=== PATIENT | female | born 1950 | race Caucasian/White ===

== ENCOUNTER 2018-08-25 18:29 | Observation (INO) ==
--- NOTE | 2018-08-25 21:04 | Internal Med History&Physical ---
<Escobar Ramos - Last Filed: 08/26/18 02:32> Date of Encounter: 08/26/18 Time of Encounter: 21:04 Internal Medicine - H&P: HPI Chief complaint: Swollen throat and rash Admitted From: Hospital to Hospital Transfer Plans for Post Hospital Care: Home History of present illness: Ms. Lopez is a 67 year old female with history of COPD, fibromyalgia, arthritis and recent complex surgery on Friday of last week who presented to [place] ED with 2 day history of sore throat and rash. She states that she initially woke from sleep yesterday morning with a feeling in her throat as if there were something stuck there. She describes it as sore, but not scratchy. In addition to this, she says that she had developed a rash on her upper body, and also had a fever of 101. She felt that the symptoms overall give her general feeling of malaise, and that she overall just was not feeling very well. In addition that she felt that she had hard time swallowing and additionally felt that maybe it was a bit challenging to breathe because she was having some swelling in her throat and also in her lips. She went to the ER in the early afternoon on Friday at which time she was apparently given a dose of Benadryl and told to take it easy for the rest of the day, however she says that she was not feeling any better at that time. She said that the symptoms continued to worsen throughout the day, and when she woke up this morning she felt substantially worse. Throughout the day today, she said her rash continued to get worse, and that it began to itch severely bad as well as had a burning sensation. She said that her throat felt as though it was closing, and he cut significantly more painful throughout the day to swallow. Ultimately, she said that she began to feel extremely sick throughout the day and did not feel that she was getting better. She did not attempt to take anything for this at home, and nothing seemed to make it any better or worse. She presented to the emergency department again due to the painful swallowing as well as difficulty breathing at which time there was significant concern for allergic reaction and anaphylaxis. Upon questioning, the patient says that she has had no changes to her diet, nor has she had any changes in her medications. She says that she has not had any differences that she can think of in exposure at all. Her knowledge she has no food or drug allergies at all. Upon further questioning, her family does mention that she lives [place] the [place] with [place] animals, and the she recently has had exposure to multiple tick bites. They wondered if a tick bite could cause any of these symptoms. In the emergency room, the patient received the typical treatment for anaphylaxis Including Solu-Medrol, Benadryl, Pepcid, and epinephrine. Initially she said that she felt better, however her blood pressure did drop shortly after and she received another dose of epinephrine which did reduce it again. Since that time she has had no trouble with her blood pressure, and she does feel that the swelling has gone down some, however she does not feel that her symptoms have really resolved although not significantly and in fact thinks that her rash has potentially worsened. Pertinent initial labs did demonstrate WBC 15.7, bicarbonate 22, lactic acid 3.0. Following her second dose of epinephrine the patient became significantly more stable and was transferred to [facility] ICU for further monitoring. Past Med Surg Social Fam HX - Past Medical History Medical history: COPD Additional medical history: fibromyalgia. arthritis. gallbladder on friday Psychiatric history: no psych history - Past Surgical History Surgical History: cholecystectomy, sinus surgery - Social History Smoking Status: Former smoker Smokeless Tobacco Status: No Alcohol use: none Drug use: none Internal Medicine - H&P: Meds Budesonide/Formoterol 160/4.5 [Symbicort 160/4.5] 2 puff IH BIDR 04/25/16 [ History] DULoxetine [Cymbalta] 30 mg PO TID 04/25/16 [History] Metoprolol Succinate 100 mg PO DAILY 04/25/16 [History] Albuterol Sulfate [Proair Hfa] 07/16/16 [History] Ascorbic Acid [Vitamin C] 500 mg PO 08/25/18 [History] Docusate [Colace] 100 mg PO BID 08/25/18 [History] Ferrous Sulfate [Iron] 325 mg PO BID 08/25/18 [History] Lisinopril 40 mg PO DAILY 08/25/18 [History] Turmeric Root Extract [Turmeric] 500 mg PO 08/25/18 [History] 3 Allergy/AdvReac Type Severity Reaction Status Date / Time codeine AdvReac Vomiting Verified 08/25/18 14:05 morphine AdvReac Vomiting Verified 08/25/18 14:05 All Systems PM: A 10-system review of systems was performed and is negative for pertinent findings except as documented above in the HPI. Review of systems: Constitutional: Admits to fever Denies chills, weight loss, generalized fatigue Head/Neck: Denies SONI, neck stiffness EENT: Admits to sore throat, swelling in the lips. Denies vision changes/ blurriness, rhinorrhea, congestion CVS: Denies chest pain, palpitations, SOLIS, orthopnea, edema, PND Pulm: Admits to some mild SOB. Denies cough, sputum, hemoptysis, wheezing GI: Denies abdominal pain, nausea, vomiting, diarrhea, constipation, melena, hematemasis : Denies dysuria, increased frequency, urgency, hematuria Heme: Denies ease of bleeding or bruising MSK: Denies joint pain, limited ROM Skin: Admits to rash on trunk/arms/hands and back, swelling in the face. Denies ulcers. Neuro: Denies SONI, focal deficits, ataxia - Constitutional Vitals: Temp Pulse Resp BP Pulse Ox 98.5 F 94 16 127/104 93 08/25/18 20:10 08/25/18 21:00 08/25/18 21:00 08/25/18 21:00 08/25/18 21:00 Exam: Gen: Vitals noted. No acute distress. HEENT: Normocephalic, atraumatic. Mild edema noted in the lips with perioral erythema present. No oral ulcers or bulae are noted. There is no intraoral or pharyngeal edema or erythema that is noted. Tonsils appear unremarkable in size in color and are without exudates. Voice is without rasp or hoarseness however there is very minimal lisp which patient says is abnormal. Neck: Supple. No adenopathy. No goiter or fullness noted anteriorly. No stridor noted on auscultation Cardiac: RRR, no murmur, +S1/S2 Pulmonary: CTA bilaterally, no wheezes, rales, rhonchi or stridor, equal chest expansion Abdomen: soft, nontender, no guarding Back: Nontender throughout. MSK: ROM intact, no joint swelling noted Extremities: no BLE edema, nontender calf, no cyanosis or clubbing Skin: Urticarial/morbilliform rash present on trunk and upper extremities anteriorly and posteriorly which extends down to the hips but does not go the the lower extremities. Minimally raised, blanching. Present on the palmar surface. Neuro: moves all extremities, no focal deficits. A&Ox3 Psych: Appropriate mood and behavior Internal Med - H&P Results - Labs CBC & Chem 7: 08/25/18 22:56 08/25/18 22:56 - Assessment and plan (1) Anaphylaxis Current Visit: Yes Status: Acute Assessment and plan: Anaphylactic reaction, source unknown Patient presents with anaphylaxis/angioedema to face and throat She also has urticarial rash over the trunk and back of her body Presentation is atypical, has been over the course of 2 days As mentioned below there is some concern that there may be underlying infectious source as well Still, at [facility], the patient did develop hypotension which resolved with administration of epinephrine IM Plan Observe in the ICU with frequent vitals check and cardiac monitoring Benadryl, Pepcid, hydrocortisone as needed for rash IM epinephrine as needed for hypotension 40 mg Solu-Medrol IV every 8 hours Hold patient's lisinopril considering concern for angioedema Qualifiers: Encounter type: initial encounter Qualified Code(s): T78.2XXA - Anaphylactic shock, unspecified, initial encounter (2) Leukocytosis Current Visit: Yes Status: Acute Assessment and plan: Patient presented with 48 hours throat pain, rash, fever She states that at home she had a fever of 101 degrees Additionally she said that she has had some nausea without vomiting On presentation the patient had a white count of 15.7, lactic acid 3.0 Rashes present on trunk and posterior, as well as palmar surface of hands but does not extend to the lower extremity The patient's family also mentions that she has had multiple tick bites in the past several weeks There is some concern that infection may play a role in this rather than solely anaphylaxis Plan -We will get blood cultures, repeat lactic acid, ferritin, LFTs, RPR -We will check a peripheral smear for parasites -Consider Antibiotics pending cultures and clinical status Qualifiers: Leukocytosis type: leukemoid reaction Qualified Code(s): D72.823 - Leukemoid reaction (3) Hypertension Current Visit: Yes Status: Acute Assessment and plan: Hypertension, difficult to control Currently well controlled, however did have anaphylaxis We will continue to monitor, hold lisinopril in setting of angioedema Qualifiers: Hypertension type: essential hypertension Qualified Code(s): I10 - Essential (primary) hypertension (4) Status post cholecystectomy Current Visit: Yes Status: Acute Assessment and plan: Status post cholecystectomy one week ago No complications at this time (5) DVT prophylaxis Current Visit: Yes Status: Acute Assessment and plan: Subcutaneous heparin - Time Spent With Patient Total time spent is greater than 50% in coordination of care (as documented) at patient's floor/unit and/or counseling patient: <TabithaZayda - Last Filed: 08/26/18 05:19> Date of Encounter: 08/26/18 Internal Medicine - H&P: HPI History of present illness: Ms. Lopze is a 67 year old female All Systems PM: A 10-system review of systems was performed and is negative for pertinent findings except as documented above in the HPI. - Constitutional Vitals: Temp Pulse Resp BP Pulse Ox 98.2 F 81 20 142/84 92 08/26/18 04:00 08/26/18 04:00 08/26/18 04:00 08/26/18 04:00 08/26/18 04:00 Internal Med - H&P Results - Labs CBC & Chem 7: 08/26/18 03:36 08/26/18 03:36 Labs: Short CBC 08/25/18 08/26/18 Range/Units 22:56 03:36 WBC 12.9 H 12.4 H (4.3-11.1) K/mcL Hgb 14.0 13.1 (11.5-15.4) g/dL Hct 41.9 39.6 (35.3-44.9) % Plt Count 283 274 (140-400) K/mcL Neutrophils # 12.1 H 11.2 H (1.6-8.9) K/mcL BMP 08/25/18 08/26/18 22:56 03:36 Sodium 138 137 Potassium 4.0 4.2 Chloride 108 H 107 Carbon Dioxide 20 L 22 L BUN 17 16 Creatinine 0.89 0.84 Glucose 190 H 152 H Calcium 8.8 8.8 Liver Function 08/25/18 Range/Units 22:56 Total Bilirubin 0.5 (0.3-1.0) mg/dL Direct Bilirubin 0.1 (0.0-0.2) mg/dL AST 14 (13-39) Units/L ALT 22 (7-52) Units/L Alkaline Phosphatase 57 (34-104) Units/L Albumin 3.9 (3.5-5.7) g/dL - Assessment and plan (1) Anaphylaxis Current Visit: Yes Status: Acute Qualifiers: Encounter type: initial encounter Qualified Code(s): T78.2XXA - Anaphylactic shock, unspecified, initial encounter (2) Leukocytosis Current Visit: Yes Status: Acute Qualifiers: Leukocytosis type: leukemoid reaction Qualified Code(s): D72.823 - Leukemoid reaction (3) Hypertension Current Visit: Yes Status: Acute Qualifiers: Hypertension type: essential hypertension Qualified Code(s): I10 - Essential (primary) hypertension (4) Status post cholecystectomy Current Visit: Yes Status: Acute (5) DVT prophylaxis Current Visit: Yes Status: Acute - Time Spent With Patient Total time spent is greater than 50% in coordination of care (as documented) at patient's floor/unit and/or counseling patient: - Attending Attestation Sasha Lopez is a 67-year-old woman who reports a history of fibromyalgia and arthritis as well as COPD who comes in on transfer from [place] emergency room with the complaint of lip swelling, sore throat and new onset rash that developed acutely 2 days ago upon waking up. She seemed to have a morbilliform/urticarial type rash which is highly pruriginous and developed swelling of her lips which increased over 24 hours and subsequently felt as though her throat was closing up. She ended up receiving diphenhydramine and 2 shots of intramuscular epinephrine due to the concern for anaphylaxis and angioedema. No triggering event or entity has been identified as she denied any contact with new medications or locations or animals or any exogenous exposures. She does state that she lives up in the [facility] with forearm gland and animals and has had multiple tick bites. Physical exam remarkable for well-developed woman who is sitting up in bed comfortably in no acute distress. Skin with red urticarial rashes over her upper extremities, abdomen and thighs but spares her lower legs. Lips are red and mildly swollen but her oropharynx is without exudate or erythema with a patent airway. No wheezing, rales or rhonchi. Unclear etiology of this patients symptoms as we have not identified inciting factor. Will observe in the ICU and administer IV fluids to maintain blood pressure as reportedly she developed an episode of hypotension. Place on dual antihistamine therapy. IV steroids for now. Although she reports contact with animals and [place] and multiple tick bites, typically tick borne and parasitic infections do not cause urticarial symptoms and frequently have concomitant thrombocytopenia and LFT abnormalities. All the same a peripheral blood smear and cultures will be obtained.
[2018-08-25] MEDS ORDERED: *HR* HYDROcodone/Acet 5/325 mg TABLET PO PRN (21:34)
[2018-08-25] MEDS ORDERED: Naloxone 0.4 MG/ML INJ IVP PRN (21:34)
[2018-08-25] MEDS ORDERED: Acetaminophen 325 MG TABLET PO PRN (21:34)
[2018-08-25] MEDS ORDERED: traMADol 50 MG TABLET PO PRN (21:34)
[2018-08-25] MEDS ORDERED: EPINEPHRINE 1 MG/ML IM PRN (22:36)
[2018-08-25] MEDS ORDERED: Famotidine 20 MG/2 ML VIAL IVP PRN (22:36)
[2018-08-25] MEDS ORDERED: Ringers Solution, Lactated 1,000 ML IVC SCH (22:45)
[2018-08-25 23:24] LABS: Basophils % 0.2 %; Eosinophils # 0.1 K/mcL (0.0-0.6); Eosinophils % 0.4 %; Hematocrit 41.9 % (35.3-44.9); Immature Granulocytes % 0.5 % (0-4); Lymphocytes # 0.6 K/mcL (0.6-4.6); Lymphocytes % 4.7 %; Mean Corpuscular HGB Conc 33.4 g/dL (31.6-35.5); Mean Corpuscular Hemoglobin 30.9 pg (28.0-33.3); Mean Corpuscular Volume 92.5 fL (83.0-100.0); Mean Platelet Volume 8.7 fL (9.4-12.4); Monocytes # 0.1 K/mcL (0.0-1.3); Monocytes % 0.5 %; Neutrophils # 12.1 K/mcL (1.6-8.9); Platelet Count 283 K/mcL (140-400); Red Blood Count 4.53 M/mcL (3.82-4.97); Red Cell Distribution Width 13.2 % (11.5-14.5); Segmented Neutrophils % 93.7 %
[2018-08-25 23:45] LABS: BUN/Creatinine Ratio 19 (6-26); Bilirubin,Direct 0.1 mg/dL (0.0-0.2); Bilirubin,Total 0.5 mg/dL (0.3-1.0); Blood Urea Nitrogen 17 mg/dL (8-23); Calcium 8.8 mg/dL (8.6-10.3); Carbon Dioxide 20 mEq/L (23-29); Chloride 108 mEq/L (98-107); Glucose 190 mg/dL (70-105); Osmolality,Calculated 293 (280-300); Sodium 138 mEq/L (136-145); eGFR For Non-African Americans > 60 (> 60)
[2018-08-25 23:46] LABS: Alanine Aminotransferase 22 Units/L (7-52); Albumin 3.9 g/dL (3.5-5.7); Albumin/Globulin Ratio 1.4 (1.1-2.2); Alkaline Phosphatase 57 Units/L (34-104); Aspartate Amino Transferase 14 Units/L (13-39); Bilirubin,Indirect 0.4 mg/dL (0.0-1.2); Globulin 2.7 g/dL (2.4-3.5); Total Protein 6.6 g/dL (6.4-8.9)
[2018-08-26 00:03] LABS: Ferritin 211 ng/mL (10-120)
[2018-08-26] MEDS ORDERED: 0.9 % Sodium Chloride 1,000 ML IVC SCH (03:00)
[2018-08-26 03:53] LABS: Basophils % 0.2 %; Eosinophils % 0.3 %; Hematocrit 39.6 % (35.3-44.9); Hemoglobin 13.1 g/dL (11.5-15.4); Immature Granulocytes % 0.5 % (0-4); Lymphocytes # 0.9 K/mcL (0.6-4.6); Lymphocytes % 7.4 %; Mean Corpuscular HGB Conc 33.1 g/dL (31.6-35.5); Mean Corpuscular Hemoglobin 30.4 pg (28.0-33.3); Mean Corpuscular Volume 91.9 fL (83.0-100.0); Mean Platelet Volume 8.8 fL (9.4-12.4); Monocytes # 0.2 K/mcL (0.0-1.3); Monocytes % 1.5 %; Neutrophils # 11.2 K/mcL (1.6-8.9); Platelet Count 274 K/mcL (140-400); Red Blood Count 4.31 M/mcL (3.82-4.97); Red Cell Distribution Width 13.2 % (11.5-14.5); Segmented Neutrophils % 90.1 %
[2018-08-26 04:05] LABS: BUN/Creatinine Ratio 19 (6-26); Blood Urea Nitrogen 16 mg/dL (8-23); Calcium 8.8 mg/dL (8.6-10.3); Carbon Dioxide 22 mEq/L (23-29); Chloride 107 mEq/L (98-107); Glucose 152 mg/dL (70-105); Osmolality,Calculated 288 (280-300); Potassium 4.2 mEq/L (3.5-5.1); Sodium 137 mEq/L (136-145); eGFR For Non-African Americans > 60 (> 60)
[2018-08-26] MEDS: *HR* Heparin 5,000 UNIT/ML VIAL SQ SCH ×3 (05:07→21:06)
[2018-08-26] MEDS ORDERED: Budesonide/Formoterol 160/4.5 1 PUFF INH IH ONE (07:12)
[2018-08-26] MEDS: Budesonide/Formoterol 160/4.5 1 PUFF INH IH SCH ×2 (07:34→20:34)
[2018-08-26] MEDS: Metoprolol XL (24 HR) Succ 50 MG TAB.ER.24H PO SCH (08:46)
[2018-08-26] MEDS: MethylPREDNISolone 40 MG/ML VIAL IVP SCH ×3 (08:46→23:13)
--- NOTE | 2018-08-26 09:46 | Internal Med Progress Note ---
Hospitalist Progress Note - Encounter Date of Encounter: 08/26/18 Time of Encounter: 08:00 - Subjective Interval History: Patient was seen and examined at bedside. Reports that her neck swelling, lip swelling in mouth swelling has nearly resolved. Slept well yesterday without any difficulty. Denies shortness of breath, wheezing, chest pain, fever, chills , nausea, vomiting, diarrhea. The sensation of having something in her throat has resolved. She does report that she has had a tick bite about 2 weeks ago with tick attached to her back. About 2 days ago she developed a red itchy and burning rash that started on her abdomen and spread to her extremities including her palms. She denies recent travel, no recent medication changes, no new medications, no recent antibiotic use, no similar symptoms in the past, no sick contacts. She denies ever having any cold sores. - Exam Vitals: Temp Pulse Resp BP Pulse Ox 98.1 F 86 16 139/71 93 08/26/18 07:30 08/26/18 06:00 08/26/18 07:34 08/26/18 06:00 08/26/18 07:34 Exam: General: Patient is alert, oriented, no acute distress, speaks in full sentences Head: atraumatic, normocephalic, Eye: normal appearance, PERRL, no scleral icterus, no conjunctival injection ENT: mucous membranes moist, normal external ear exam, has erythema and dryness at the angle of the mouth bilaterally, no visible oral ulcers Neck: normal inspection, trachea midline, full ROM, no carotid bruits Chest: normal inspection, symmetric chest rise Respiratory: Good respiratory effort. Bilateral breath sounds are clear without wheezing, crackles, or rhonchi. Cardiovascular: Regular rate and rhythm. s1 and s2 No clicks, rubs, gallops, or murmors. Abdomen: Bowel sounds present normoactive x-4 quadrants. Abdomen is soft, nondistended. no Epigastric tenderness. No guarding or rebound. No organomegaly noted, obese musculoskeletal: Spontaneously moving all extremities. no edema, no calf tenderness Skin: warm, dry, intact. eruthematoues macular rash involving stomach, trunk, palms, upper and lower extremities. Neuro: Alert and oriented x4. Sensation light touch intact. Cranial nerves 2- 12 is intact. Not aphasic, Psych: Patient's affect is normal - Assessment and Plan (1) Anaphylaxis Current Visit: Yes Status: Acute Assessment and Plan: Anaphylactic reaction, source unknown ( no recent new medication, no recent Abx use) ? infectious Patient presents with anaphylaxis/angioedema to face and throat She also has urticarial rash over the trunk and back of her body Presentation is atypical, has been over the course of 2 days Observe in the ICU with frequent vitals check and cardiac monitoring- will consider transfering the patietn if her vitals and respiratory status remains stable Benadryl, Pepcid, hydrocortisone as needed for rash IM epinephrine as needed for hypotension 40 mg Solu-Medrol IV every 8 hours Hold patient's lisinopril considering concern for angioedema (2) Rash and nonspecific skin eruption Current Visit: Yes Status: Acute Assessment and Plan: allergic vs drug induced ( recent cholecystectomy) vs infectious Patient presented with 48 hours throat pain, rash, fever of 101 degrees (at home ) - currently afebrile Additionally she said that she has had some nausea without vomiting On presentation the patient had a white count of 15.7, lactic acid 3.0- both trending down new onset rash that started from he trunk involving extremities and palms. recent tick bite RPR ordered rickettsia - ordered peripheral smear for parasites- ordered ESR, CRP trend lactic acid ferritin mildly elevated 211 Bcx obtained on 08/25/18 ID consulted will follow recommendations (3) Leukocytosis Current Visit: Yes Status: Acute Assessment and Plan: management as per above (4) Hypertension Current Visit: Yes Status: Acute Assessment and Plan: Currently controlled, however did have anaphylaxis We will continue to monitor BP hold lisinopril in setting of angioedema (5) Status post cholecystectomy Current Visit: Yes Status: Acute Assessment and Plan: Status post cholecystectomy one week ago No complications at this time (6) Hyperglycemia Current Visit: Yes Status: Acute Assessment and Plan: ? steroid induced follow A1c finger sticks and sliding scale for glucose control (7) DVT prophylaxis Current Visit: Yes Status: Acute Assessment and Plan: Subcutaneous heparin - Time Spent with Patient Total time spent is greater than 50% in coordination of care (as documented) at patient's floor/unit and/or counseling patient: Internal Medicine: Result - Labs CBC & Chem 7: 08/26/18 03:36 08/26/18 03:36 Labs: Short CBC 08/25/18 08/26/18 Range/Units 22:56 03:36 WBC 12.9 H 12.4 H (4.3-11.1) K/mcL Hgb 14.0 13.1 (11.5-15.4) g/dL Hct 41.9 39.6 (35.3-44.9) % Plt Count 283 274 (140-400) K/mcL Neutrophils # 12.1 H 11.2 H (1.6-8.9) K/mcL BMP 08/25/18 08/26/18 22:56 03:36 Sodium 138 137 Potassium 4.0 4.2 Chloride 108 H 107 Carbon Dioxide 20 L 22 L BUN 17 16 Creatinine 0.89 0.84 Glucose 190 H 152 H Calcium 8.8 8.8 Liver Function 08/25/18 Range/Units 22:56 Total Bilirubin 0.5 (0.3-1.0) mg/dL Direct Bilirubin 0.1 (0.0-0.2) mg/dL AST 14 (13-39) Units/L ALT 22 (7-52) Units/L Alkaline Phosphatase 57 (34-104) Units/L Albumin 3.9 (3.5-5.7) g/dL Consult Discharge Plan - Plan Referrals: Saul Dixon MD [Primary Care Provider] - (1) Anaphylaxis Qualifiers: Encounter type: initial encounter Qualified Code(s): T78.2XXA - Anaphylactic shock, unspecified, initial encounter (3) Leukocytosis Qualifiers: Leukocytosis type: leukemoid reaction Qualified Code(s): D72.823 - Leukemoid reaction (4) Hypertension Qualifiers: Hypertension type: essential hypertension Qualified Code(s): I10 - Essential (primary) hypertension
[2018-08-26] MEDS ORDERED: *HR* Dextrose 50 % in Water (Syg) 50 ML SYRINGE IVP PRN (10:03)
[2018-08-26] MEDS ORDERED: Dextrose Gel 15 GM/37.5 ML TUBE PO PRN ×2 (10:03)
[2018-08-26] MEDS ORDERED: D5% in Water 1,000 ML IVC PRN (10:03)
[2018-08-26 11:42] LABS: Estimated Average Glucose 114 mg/dl; Hemoglobin A1C 5.6 %
--- NOTE | 2018-08-26 12:03 | Infectious Disease Consult ---
Date of Encounter: 08/26/18 Time of Encounter: 11:57 Assessment and Plan (1) Sepsis Status: Acute Assessment and plan: On admission patient had low-grade fever, tachycardia and leukocytosis Likely secondary to viral exanthem or inflammatory response No obvious infectious etiology identified. CT chest was negative for acute process. Blood cultures have been negative and strep screen came back negative No urinary symptoms Qualifiers: Sepsis type: sepsis due to unspecified organism Qualified Code(s): A41.9 - Sepsis, unspecified organism (2) Rash and nonspecific skin eruption Status: Acute Assessment and plan: Initially I was concerned for measles especially that the rash is typical presentation and I was concerned for possible [place] spots Patient illnesses had measle twice in the past I did place the patient and the proper isolation precaution I did speak with dermatology and symptomatic picture of the patient and they think measles is less likely. They are concerned more for her tachycardia or urticarial vasculitis or erythema multiforme. Sometimes connective tissue disease can present. I will start antibiotics yet Maybe return to evaluate and start the patient on steroids We will also check upper respiratory infection panel Check inflammatory markers including ESR and CRP. Check SAEID and rheumatoid factor Check procalcitonin level (3) Sore throat Status: Acute Assessment and plan: Likely secondary to viral exanthem Strep rapid screen came back negative (4) Status post cholecystectomy Status: Acute Infectious Disease HPI - Data of Consult Patient: new to practice Consult date: 08/26/18 Requesting Physician: Magan Gould MD Primary Care Provider: Saul Dixon MD - Consult Narrative Reason for consult: "Rash from trunk now involving extremities including palms, rickettsia?? History of present illness: Ms. Lopez is a 67 year old female Patient is a 67-year-old woman who presented to [facility] on 08/26/2018 with swollen throat and rash, we are consulted today for concern for infectious etiology including tick borne illness versus secondary syphilis versus other Patient is 67-year-old woman with past medical history mentioned below including COPD, fibromyalgia, arthritis presented to [facility] with sore throat, rash and just not feeling well that started on Friday prior to admission. Patient apparently is retired and lives alone and has no children and grandchildren close by. Patient denies any sick contacts. Patient denied URI symptoms. Patient denies any headache or meningeal sign. Patient denied any throat swelling but she states that she felt like her throat is sore and is of something stuck in there. Patient states that the rash started on her trunk and has been spreading. Apparently the rash is very pruritic. Rash is maculopapular. No vesicles. On further questioning patient tells me she has had measles twice when she was young and she has had chickenpox in the past. Patient also had a tick bite previously about 2 weeks ago. Since admission, patient has been afebrile but at the outside facility she had a fever of 100.1, tachycardic, tachypneic. Patient presenting labs revealed a WBC of 12.9 with 94% neutrophils. Patient's BMP was revealing for lactic acidosis with S of 3.7. BUN/creatinine were 17 and 0.89 respectively. CRP was checked and it was 34. Blood cultures 2 were obtained on 08/25/2018 and are no growth to date. Group a strep rapid screen was done and came back negative. Platelets were within normal limits and patient did not have elevated LFTs. Patient did have a CT chest at the outside facility and it reveals 6 mm nodule on the posterior basal left lower lobe that has increased from 2 mm back in April 2017. Currently patient laying in bed and appears comfortable no acute distress. Review of systems unremarkable other for what mentioned in history of present illness. On further questioning. Patient tells me she is not sexually active she has not had any kind of intercourse for 8 years. Denies history of STDs or HIV. Patient does not smoke drink or use recreational drug CC: Magan Gould MD Past Med Surg Social Fam HX - Past Medical History Medical history: COPD Additional medical history: fibromyalgia. arthritis. gallbladder on friday Psychiatric history: no psych history - Past Surgical History Surgical History: cholecystectomy, sinus surgery - Social History Smoking Status: Former smoker Smokeless Tobacco Status: No Alcohol use: none Drug use: none Infectious Disease-CN:Meds Budesonide/Formoterol 160/4.5 [Symbicort 160/4.5] 2 puff IH BIDR 04/25/16 [ History] DULoxetine [Cymbalta] 30 mg PO TID 04/25/16 [History] Albuterol Sulfate [Proair Hfa] 07/16/16 [History] Ascorbic Acid [Vitamin C] 500 mg PO 08/25/18 [History] Docusate [Colace] 100 mg PO BID 08/25/18 [History] Ferrous Sulfate [Iron] 325 mg PO BID 08/25/18 [History] Lisinopril 40 mg PO DAILY 08/25/18 [History] Turmeric Root Extract [Turmeric] 500 mg PO 08/25/18 [History] Amlodipine Besylate [Amlodipine Besylate] 10 mg PO DAILY 08/26/18 [History] Metoprolol Succinate 200 mg PO DAILY 08/26/18 [History] 3 Allergy/AdvReac Type Severity Reaction Status Date / Time codeine AdvReac Vomiting Verified 08/25/18 14:05 morphine AdvReac Vomiting Verified 08/25/18 14:05 Review of systems: 10 point review of systems done, negative other for what is mentioned in history of present illness Exam - Constitutional Vitals: Temp Pulse Resp BP Pulse Ox 98.1 F 83 24 139/75 94 08/26/18 07:30 08/26/18 09:00 08/26/18 09:00 08/26/18 09:00 08/26/18 09:00 General appearance: cooperative, no acute distress, no febrile - Head Head exam: Present: atraumatic, normocephalic - Eye Eye exam: Present: EOMI, PERRL, sclera anicteric - ENT Additional comments: Some white lesions on the cheeks bilaterally. I was worried for K[place] spots but does not appear that way - Neck Neck exam: Absent: meningismus Additional comments: Very small non-mobile nontender lymph nodes - Respiratory Respiratory exam: Present: CTAB. Absent: wheezes - Cardiovascular Cardiovascular exam: Present: RRR, +S1, +S2 - GI/Abdominal GI/Abdominal exam: Present: normal bowel sounds, soft. Absent: tenderness - Extremities Exam Extremities exam: Present: full ROM. Absent: pedal edema - Neurological Exam Neurological exam: Present: alert, oriented X3. Absent: speech deficit - Skin Additional comments: Large areas of maculopapular rash that is most concentrated on the trunk with lesions no noted on the upper and lower extremities and the neck. Lesions sparing the face. There is no vesicles. No dermatomal distribution. Rash is very red Infectious Disease CN: Results - Labs CBC & Chem 7: 08/26/18 03:36 08/26/18 03:36 Cultures: Cultures 08/25/18 22:56 Blood Culture - Preliminary Peripheral Venipuncture Culture is incubating and being continuously monitored for growth. Final report to follow. 08/25/18 22:56 Blood Culture - Preliminary Peripheral Venipuncture Culture is incubating and being continuously monitored for growth. Final report to follow. Consult Discharge Plan - Plan Referrals: Saul Dixon MD [Primary Care Provider] -
[2018-08-26] MEDS: 0.9 % Sodium Chloride 1,000 ML IVC SCH (12:05)
[2018-08-26] MEDS: Insulin LISPRO 300 UNITS/3 ML VIAL SQ SCH ×3 (12:42→23:13)
[2018-08-26 18:42] LABS: Adenovirus Not Detected (Not Detect); Bordetella Pertussis Not Detected (Not Detect); Chlamydophila pneumoniae Not Detected (Not Detect); Coronavirus 229E Not Detected (Not Detect); Coronavirus HKU1 Not Detected (Not Detect); Coronavirus NL63 Not Detected (Not Detect); Coronavirus OC43 Not Detected (Not Detect); Human Metapneumovirus Not Detected (Not Detect); Human Rhinovirus/Enterovirus Not Detected (Not Detect); Influenza A Subtype 2009 H1 Not Detected (Not Detect); Influenza A Untypeable Not Detected (Not Detect); Influenza B Not Detected (Not Detect); Mycoplasma pneumoniae Not Detected (Not Detect); Parainfluenza Virus 1 Not Detected (Not Detect); Parainfluenza Virus 2 Not Detected (Not Detect); Parainfluenza Virus 3 Not Detected (Not Detect); Parainfluenza Virus 4 Not Detected (Not Detect); Respiratory Syncytial Virus Not Detected (Not Detect)
[2018-08-27] MEDS ORDERED: hydrALAZINE 10 MG TABLET PO ONE (03:31)
[2018-08-27] MEDS ORDERED: DiphenhydraMINE CREAM 28.4 GM TUBE TP PRN (03:48)
[2018-08-27] MEDS: *HR* Heparin 5,000 UNIT/ML VIAL SQ SCH ×3 (04:42→21:26)
[2018-08-27 05:17] LABS: Hematocrit 34.3 % (35.3-44.9); Hemoglobin 11.7 g/dL (11.5-15.4); Mean Corpuscular HGB Conc 34.1 g/dL (31.6-35.5); Mean Corpuscular Hemoglobin 30.9 pg (28.0-33.3); Mean Corpuscular Volume 90.5 fL (83.0-100.0); Mean Platelet Volume 8.8 fL (9.4-12.4); Platelet Count 269 K/mcL (140-400); Red Blood Count 3.79 M/mcL (3.82-4.97); Red Cell Distribution Width 13.8 % (11.5-14.5)
[2018-08-27] MEDS: Insulin LISPRO 300 UNITS/3 ML VIAL SQ SCH ×3 (05:19→18:40)
[2018-08-27 05:38] LABS: BUN/Creatinine Ratio 23 (6-26); Blood Urea Nitrogen 14 mg/dL (8-23); Calcium 8.8 mg/dL (8.6-10.3); Carbon Dioxide 21 mEq/L (23-29); Chloride 108 mEq/L (98-107); Glucose 201 mg/dL (70-105); Osmolality,Calculated 292 (280-300); Sodium 138 mEq/L (136-145); eGFR For Non-African Americans > 60 (> 60)
[2018-08-27] MEDS: 0.9 % Sodium Chloride 1,000 ML IVC SCH (06:27)
[2018-08-27] MEDS: Budesonide/Formoterol 160/4.5 1 PUFF INH IH SCH ×2 (07:52→21:53)
[2018-08-27] MEDS: Metoprolol XL (24 HR) Succ 50 MG TAB.ER.24H PO SCH (08:57)
[2018-08-27] MEDS: MethylPREDNISolone 40 MG/ML VIAL IVP SCH ×2 (08:58→16:03)
[2018-08-27] MEDS ORDERED: *HR* HYDROcodone/Acet 5/325 mg TABLET PO PRN (12:44)
--- NOTE | 2018-08-27 15:55 | Infectious Disease Progress No ---
Date of Encounter: 08/27/18 Time of Encounter: 15:52 - Assessment and Plan (1) Sepsis Status: Acute The patient had 3 sepsis criteria on admission. Likely secondary to viral exanthem or inflammatory response. No obvious signs of infection noted. WBC worse this morning, likely secondary to steroids. CT of the chest was negative for acute process. Blood cultures drawn on 08/25/18 are no growth to date 2 sets. Strep screen was negative. No urinary symptoms noted. Antibiotics been discontinued. Continue to observe off antibiotics. Qualifiers: Sepsis type: sepsis due to unspecified organism Qualified Code(s): A41.9 - Sepsis, unspecified organism (2) Rash and nonspecific skin eruption Status: Acute Etiology: Unclear. Initially concerned for measles, but discussion with dermatology makes measles less likely. Recommend dermatology to evaluate for possible skin biopsy. Continue supportive care. ESR and CRP not impressive. Procalcitonin pending. SAEID pending. Rheumatoid factor normal. It is less likely that this is a bacterial infectio. Viral exanthem is possible. Await dermatology recommendations. Continue to observe off antibiotics. No further recommendations from the ID team. We will sign off. Please re- consult if needed. (3) Sore throat Status: Acute Strep screen negative. (4) Status post cholecystectomy Status: Acute - Subjective Interval history: Patient seen and examined. No acute events noted overnight. Patient states she is tired because she couldn't sleep due to itching. Denies fevers, chills, or rigors. Denies chest pain, shortness of breath, or cough. Denies nausea, vomiting, or diarrhea. Denies abdominal pain, urinary complaints. States appetite is not very good. Denies oral thrush. States rash is no better but no worse. Infect Dis PN-Objective Data - Labs CBC & Chem 7: 08/28/18 00:48 08/28/18 00:48 Labs: Laboratory Results - last 24 hr 08/26/18 08/26/18 08/26/18 12:26 16:45 23:05 WBC RBC Hgb Hct MCV MCH MCHC RDW Plt Count MPV ESR Sodium Potassium Chloride Carbon Dioxide BUN Creatinine Est GFR ( Amer) Est GFR (Non-Af Amer) BUN/Creatinine Ratio Glucose POC Glucose 147 H 196 H Calculated Osmolality Calcium C-Reactive Protein Rheumatoid Factor Chlamy pneumoniae PCR Not Detected Adenovirus (PCR) Not Detected B. pertussis DNA (PCR) Not Detected B.parapertussis DNA PCR Not Detected Coronavirus OC43 (PCR) Not Detected Coronavirus HKU1 (PCR) Not Detected Coronavirus 229E (PCR) Not Detected Coronavirus NL63 (PCR) Not Detected Human Metapneumovir PCR Not Detected Influenza A (H1) PCR Not Detected Influ A (H1N1/09) PCR Not Detected Influenza A (H3) PCR Not Detected Influenza A Untype (PCR) Not Detected Influenza Type B (PCR) Not Detected M.pneumoniae DNA (PCR) Not Detected Parainfluenza 1 (PCR) Not Detected Parainfluenza 2 (PCR) Not Detected Parainfluenza 3 (PCR) Not Detected Parainfluenza 4 (PCR) Not Detected RSV (PCR) Not Detected Entero/Rhino (PCR) Not Detected 08/27/18 08/27/18 08/27/18 05:04 05:04 05:04 WBC 15.3 H RBC 3.79 L Hgb 11.7 Hct 34.3 L MCV 90.5 MCH 30.9 MCHC 34.1 RDW 13.8 Plt Count 269 MPV 8.8 L ESR 13 Sodium 138 Potassium 4.0 Chloride 108 H Carbon Dioxide 21 L BUN 14 Creatinine 0.62 Est GFR ( Amer) > 60 Est GFR (Non-Af Amer) > 60 BUN/Creatinine Ratio 23 Glucose 201 H POC Glucose Calculated Osmolality 292 Calcium 8.8 C-Reactive Protein Rheumatoid Factor Chlamy pneumoniae PCR Adenovirus (PCR) B. pertussis DNA (PCR) B.parapertussis DNA PCR Coronavirus OC43 (PCR) Coronavirus HKU1 (PCR) Coronavirus 229E (PCR) Coronavirus NL63 (PCR) Human Metapneumovir PCR Influenza A (H1) PCR Influ A (H1N1/09) PCR Influenza A (H3) PCR Influenza A Untype (PCR) Influenza Type B (PCR) M.pneumoniae DNA (PCR) Parainfluenza 1 (PCR) Parainfluenza 2 (PCR) Parainfluenza 3 (PCR) Parainfluenza 4 (PCR) RSV (PCR) Entero/Rhino (PCR) 08/27/18 08/27/18 08/27/18 05:04 05:04 05:17 WBC RBC Hgb Hct MCV MCH MCHC RDW Plt Count MPV ESR Sodium Potassium Chloride Carbon Dioxide BUN Creatinine Est GFR ( Amer) Est GFR (Non-Af Amer) BUN/Creatinine Ratio Glucose POC Glucose 197 H Calculated Osmolality Calcium C-Reactive Protein 13 H Rheumatoid Factor < 10 Chlamy pneumoniae PCR Adenovirus (PCR) B. pertussis DNA (PCR) B.parapertussis DNA PCR Coronavirus OC43 (PCR) Coronavirus HKU1 (PCR) Coronavirus 229E (PCR) Coronavirus NL63 (PCR) Human Metapneumovir PCR Influenza A (H1) PCR Influ A (H1N1/) PCR Influenza A (H3) PCR Influenza A Untype (PCR) Influenza Type B (PCR) M.pneumoniae DNA (PCR) Parainfluenza 1 (PCR) Parainfluenza 2 (PCR) Parainfluenza 3 (PCR) Parainfluenza 4 (PCR) RSV (PCR) Entero/Rhino (PCR) Cultures: Cultures 08/25/18 22:56 Blood Culture - Preliminary Peripheral Venipuncture Culture is incubating and being continuously monitored for growth. Final report to follow. 08/25/18 22:56 Blood Culture - Preliminary Peripheral Venipuncture Culture is incubating and being continuously monitored for growth. Final report to follow. Serology 08/26/18 08/26/18 Range/Units 16:45 03:36 T.pallidum Ab Interpret Negative (NEGATIVE) Chlamy pneumoniae PCR Not Detected (Not Detect) Adenovirus (PCR) Not Detected (Not Detect) B. pertussis DNA (PCR) Not Detected (Not Detect) B.parapertussis DNA PCR Not Detected (Not Detect) Coronavirus OC43 (PCR) Not Detected (Not Detect) Coronavirus HKU1 (PCR) Not Detected (Not Detect) Coronavirus 229E (PCR) Not Detected (Not Detect) Coronavirus NL63 (PCR) Not Detected (Not Detect) Human Metapneumovir PCR Not Detected (Not Detect) Influenza A (H1) PCR Not Detected (Not Detect) Influ A (H1N1/09) PCR Not Detected (Not Detect) Influenza A (H3) PCR Not Detected (Not Detect) Influenza A Untype (PCR) Not Detected (Not Detect) Influenza Type B (PCR) Not Detected (Not Detect) M.pneumoniae DNA (PCR) Not Detected (Not Detect) Parainfluenza 1 (PCR) Not Detected (Not Detect) Parainfluenza 2 (PCR) Not Detected (Not Detect) Parainfluenza 3 (PCR) Not Detected (Not Detect) Parainfluenza 4 (PCR) Not Detected (Not Detect) RSV (PCR) Not Detected (Not Detect) Entero/Rhino (PCR) Not Detected (Not Detect) Exam - Constitutional Vitals: Temp Pulse Resp BP Pulse Ox 97.8 F 70 18 196/96 96 08/27/18 15:37 08/27/18 15:37 08/27/18 15:37 08/27/18 15:37 08/27/18 15:37 General appearance: average body habitus, cooperative, no acute distress - Head Head exam: Present: atraumatic, normal inspection, normocephalic - Eye Eye exam: Present: EOMI, normal appearance, PERRL Pupils: Present: normal accommodation - ENT ENT exam: Present: mucous membranes moist - Neck Neck exam: Present: normal inspection - Respiratory Respiratory exam: Present: CTAB. Absent: rales, respiratory distress, rhonchi, wheezes - Cardiovascular Cardiovascular exam: Present: RRR, +S1, +S2 - GI/Abdominal GI/Abdominal exam: Present: normal bowel sounds, soft. Absent: distended, tenderness - Extremities Exam Extremities exam: Absent: joint swelling, normal inspection (Rash noted to the bilateral thighs.), pedal edema, tenderness - Neurological Exam Neurological exam: Present: alert, oriented X3, no focal deficits - Psychiatric Psychiatric exam: Present: normal affect, normal mood - Skin Skin exam: Present: dry, intact, normal color, rash (Erythematous rash noted to the BUE, bilateral thighs, and trunk. ), warm Consult Discharge Plan - Plan Referrals: Saul Dixon MD [Primary Care Provider] - Prescriptions: Cetirizine HCl [Zyrtec] 5 mg PO HS #15 udc EPINEPHrine [Epipen] 0.3 mg IM ONCE PRN #1 kit PRN Reason: Anaphylaxis Fexofenadine/Pseudoephedrine [Samina-D 12 Hour Tablet] 1 each PO DAILY #15 tab.er.12h PredniSONE [Deltasone] 40 mg PO DAILY #7 tablet Triamcinolone Acet 0.1% CRM [Kenalog] 1 appl TP BID #1 tube - Attending Attestation I examined this patient and my medical decision-making was reviewed with the Resident Physician. I agree with the documented findings, disposition and treatment plan as described except to the extent set forth below.
[2018-08-27] MEDS ORDERED: MethylPREDNISolone 40 MG/ML VIAL IVP SCH (18:00)
--- NOTE | 2018-08-27 18:04 | Internal Med Progress Note ---
Hospitalist Progress Note - Encounter Date of Encounter: 08/27/18 Time of Encounter: 08:00 - Subjective Interval History: Patient was seen and examined at bedside. slept well over night, no complaints of difficulty breathing, swelling of her lips or itchy throat. denies chest pain, palpitations or SOB. reports that she believes that her rash has improved although it still itches. denies pain, tolerating PO diet - Exam Vitals: Temp Pulse Resp BP Pulse Ox 97.8 F 70 18 196/96 96 08/27/18 15:37 08/27/18 15:37 08/27/18 15:37 08/27/18 15:37 08/27/18 15:37 Exam: General: Patient is alert, oriented, no acute distress, speaks in full sentences Head: atraumatic, normocephalic, Eye: normal appearance, PERRL, no scleral icterus, no conjunctival injection ENT: mucous membranes moist, normal external ear exam, has erythema and dryness at the angle of the mouth bilaterally, no visible oral ulcers, no koplik spot Neck: normal inspection, trachea midline, full ROM, no carotid bruits Chest: normal inspection, symmetric chest rise Respiratory: Good respiratory effort. Bilateral breath sounds are clear without wheezing, crackles, or rhonchi. Cardiovascular: Regular rate and rhythm. s1 and s2 No clicks, rubs, gallops, or murmors. Abdomen: Bowel sounds present normoactive x-4 quadrants. Abdomen is soft, nondistended. no Epigastric tenderness. No guarding or rebound. No organomegaly noted, obese musculoskeletal: Spontaneously moving all extremities. no edema, no calf tenderness Skin: warm, dry, intact. eruthematoues macular rash involving stomach, trunk, palms, upper and lower extremities. Neuro: Alert and oriented x4. Sensation light touch intact. Cranial nerves 2- 12 is intact. Not aphasic, Psych: Patient's affect is normal - Assessment and Plan (1) Rash and nonspecific skin eruption Current Visit: Yes Status: Acute Assessment and Plan: allergic vs drug induced ( recent cholecystectomy) vs infectious Patient presented with 48 hours throat pain, rash, fever of 101 degrees (at home ) - currently afebrile Additionally she said that she has had some nausea without vomiting On presentation the patient had a white count of 15.7, lactic acid 3.0- both trending down new onset rash that started from he trunk involving extremities and palms. recent tick bite measles less likely T. pallidum- negative viral panel negative rickettsia - ordered peripheral smear for parasites- ordered ESR 16 to 13 , CRP -34 to 13 ferritin mildly elevated 211 Bcx obtained on 08/25/18- NGTD Procalcitonin pending. SAEID pending. Rheumatoid factor normal. ID consulted recommendations appreciated will consult dermatology for possible biopsy Continue to observe off antibiotics. (2) Sepsis Current Visit: Yes Status: Acute Assessment and Plan: The patient had 3 sepsis criteria on admission.- resolved Likely secondary to viral exanthem or inflammatory response. No obvious signs of infection noted. WBC worse this morning, likely secondary to steroids. CT of the chest was negative for acute process. Blood cultures drawn on 08/25/18 are no growth to date 2 sets. Strep screen was negative. No urinary symptoms noted. Antibiotics been discontinued. Continue to observe off antibiotics. (3) Anaphylaxis Current Visit: Yes Status: Resolved Assessment and Plan: Anaphylactic reaction, source unknown ( no recent new medication, no recent Abx use) ? infectious - resolved Patient presents with anaphylaxis/angioedema to face and throat She also has urticarial rash over the trunk and back of her body Presentation is atypical, has been over the course of 2 days Observe in the ICU with frequent vitals check and cardiac monitoring- will consider transfering the patietn if her vitals and respiratory status remains stable Benadryl, Pepcid, hydrocortisone as needed for rash IM epinephrine as needed for hypotension 40 mg Solu-Medrol IV every BID Hold patient's lisinopril considering concern for angioedema (4) Hypertension Current Visit: Yes Status: Acute Assessment and Plan: Currently controlled, however did have anaphylaxis We will continue to monitor BP discontinue lisinopril in setting of angioedema on discharge one dose of lasix IV given will follow BP (5) Status post cholecystectomy Current Visit: Yes Status: Acute Assessment and Plan: Status post cholecystectomy one week ago No complications at this time (6) Hyperglycemia Current Visit: Yes Status: Acute Assessment and Plan: most likely steroid induced A1c 5.6 finger sticks and sliding scale for glucose control (7) DVT prophylaxis Current Visit: Yes Status: Acute Assessment and Plan: Subcutaneous heparin - Time Spent with Patient Total time spent is greater than 50% in coordination of care (as documented) at patient's floor/unit and/or counseling patient: Internal Medicine: Result - Labs CBC & Chem 7: 08/27/18 05:04 08/27/18 05:04 Labs: Short CBC 08/27/18 Range/Units 05:04 WBC 15.3 H (4.3-11.1) K/mcL Hgb 11.7 (11.5-15.4) g/dL Hct 34.3 L (35.3-44.9) % Plt Count 269 (140-400) K/mcL BMP 08/27/18 05:04 Sodium 138 Potassium 4.0 Chloride 108 H Carbon Dioxide 21 L BUN 14 Creatinine 0.62 Glucose 201 H Calcium 8.8 Consult Discharge Plan - Plan Referrals: Saul Dixon MD [Primary Care Provider] - (2) Sepsis Qualifiers: Sepsis type: sepsis due to unspecified organism Qualified Code(s): A41.9 - Sepsis, unspecified organism (3) Anaphylaxis Qualifiers: Encounter type: initial encounter Qualified Code(s): T78.2XXA - Anaphylactic shock, unspecified, initial encounter (4) Hypertension Qualifiers: Hypertension type: essential hypertension Qualified Code(s): I10 - Essential (primary) hypertension
[2018-08-27] MEDS ORDERED: Furosemide 40 MG/4 ML VIAL IVP ONE (18:06)
[2018-08-28] MEDS: Insulin LISPRO 300 UNITS/3 ML VIAL SQ SCH ×3 (00:20→12:16)
[2018-08-28 02:00] LABS: Hematocrit 36.7 % (35.3-44.9); Hemoglobin 12.5 g/dL (11.5-15.4); Mean Corpuscular HGB Conc 34.1 g/dL (31.6-35.5); Mean Corpuscular Hemoglobin 30.8 pg (28.0-33.3); Mean Corpuscular Volume 90.4 fL (83.0-100.0); Mean Platelet Volume 9.2 fL (9.4-12.4); Platelet Count 308 K/mcL (140-400); Red Blood Count 4.06 M/mcL (3.82-4.97); Red Cell Distribution Width 13.8 % (11.5-14.5)
[2018-08-28 02:07] LABS: BUN/Creatinine Ratio 21 (6-26); Blood Urea Nitrogen 15 mg/dL (8-23); Carbon Dioxide 25 mEq/L (23-29); Chloride 102 mEq/L (98-107); Glucose 213 mg/dL (70-105); Osmolality,Calculated 295 (280-300); Potassium 3.3 mEq/L (3.5-5.1); Sodium 139 mEq/L (136-145); eGFR For Non-African Americans > 60 (> 60)
[2018-08-28] MEDS: *HR* Heparin 5,000 UNIT/ML VIAL SQ SCH (05:28)
[2018-08-28] MEDS ORDERED: MethylPREDNISolone 40 MG/ML VIAL IVP SCH (06:00)
[2018-08-28] MEDS: Budesonide/Formoterol 160/4.5 1 PUFF INH IH SCH (07:39)
[2018-08-28] MEDS: Metoprolol XL (24 HR) Succ 50 MG TAB.ER.24H PO SCH (07:59)
[2018-08-28] MEDS ORDERED: Furosemide 20 MG/2 ML VIAL IVP SCH (09:00)
[2018-08-28] MEDS ORDERED: Furosemide 20 MG TABLET PO PRN (10:11)
[2018-08-28 10:47] VITALS: BP 164/85
--- NOTE | 2018-08-28 11:44 | Internal Med Progress Note ---
Hospitalist Progress Note - Encounter Date of Encounter: 08/28/18 Time of Encounter: 08:15 - Subjective Interval History: Patient was seen and examined at bedside. slept well over night, no complaints of difficulty breathing, swelling of her lips or itchy throat. denies chest pain, palpitations or SOB. reports that she believes that her rash has improved although it still itches. denies pain, tolerating PO diet - Exam Vitals: Temp Pulse Resp BP Pulse Ox 98.0 F 78 16 164/85 95 08/28/18 10:42 08/28/18 10:42 08/28/18 10:42 08/28/18 10:42 08/28/18 10:42 Exam: General: Patient is alert, oriented, no acute distress, speaks in full sentences Head: atraumatic, normocephalic, Eye: normal appearance, PERRL, no scleral icterus, no conjunctival injection ENT: mucous membranes moist, normal external ear exam, has erythema and dryness at the angle of the mouth bilaterally, no visible oral ulcers, no koplik spot Neck: normal inspection, trachea midline, full ROM, no carotid bruits Chest: normal inspection, symmetric chest rise Respiratory: Good respiratory effort. Bilateral breath sounds are clear without wheezing, crackles, or rhonchi. Cardiovascular: Regular rate and rhythm. s1 and s2 No clicks, rubs, gallops, or murmors. Abdomen: Bowel sounds present normoactive x-4 quadrants. Abdomen is soft, nondistended. no Epigastric tenderness. No guarding or rebound. No organomegaly noted, obese musculoskeletal: Spontaneously moving all extremities. no edema, no calf tenderness Skin: warm, dry, intact. eruthematoues macular rash involving stomach, trunk, palms, upper and lower extremities- improved Neuro: Alert and oriented x4. Sensation light touch intact. Cranial nerves 2- 12 is intact. Not aphasic, Psych: Patient's affect is normal - Assessment and Plan (1) Rash and nonspecific skin eruption Current Visit: Yes Status: Acute Assessment and Plan: allergic vs drug induced ( recent cholecystectomy) vs infectious Patient presented with 48 hours throat pain, rash, fever of 101 degrees (at home ) - currently afebrile Additionally she said that she has had some nausea without vomiting On presentation the patient had a white count of 15.7, lactic acid 3.0 new onset rash that started from he trunk involving extremities and palms. recent tick bite measles less likely T. pallidum- negative viral panel negative rickettsia - ordered peripheral smear for parasites- ordered ESR 16 to 13 , CRP -34 to 13 ferritin mildly elevated 211 Bcx obtained on 08/25/18- NGTD Procalcitonin pending. SAEID pending. Rheumatoid factor normal. ID consulted recommendations appreciated dermatology consulted on 08/27 for possible biopsy - will follow recommendations Continue to observe off antibiotics. (2) Sepsis Current Visit: Yes Status: Acute Assessment and Plan: The patient had 3 sepsis criteria on admission.- resolved Likely secondary to viral exanthem or inflammatory response. No obvious signs of infection noted. WBC worse this morning, likely secondary to steroids. CT of the chest was negative for acute process. Blood cultures drawn on 08/25/18 are no growth to date 2 sets. Strep screen was negative. No urinary symptoms noted. Antibiotics been discontinued. Continue to observe off antibiotics. (3) Anaphylaxis Current Visit: Yes Status: Resolved Assessment and Plan: Anaphylactic reaction, source unknown ( no recent new medication, no recent Abx use) ? infectious - resolved Patient presents with anaphylaxis/angioedema to face and throat She also has urticarial rash over the trunk and back of her body Presentation is atypical, has been over the course of 2 days Benadryl, Pepcid, hydrocortisone as needed for rash IM epinephrine as needed for hypotension 40 mg Solu-Medrol IV every BID - started taper discontinue patient's lisinopril on discharge as she had angioedema (4) Hypertension Current Visit: Yes Status: Acute Assessment and Plan: We will continue to monitor BP discontinue lisinopril in setting of angioedema on discharge continue metoprolol started on lasix 20 mg daily ( received large amounts of IVF as she was hypotensive on presentation) (5) Status post cholecystectomy Current Visit: Yes Status: Acute Assessment and Plan: Status post cholecystectomy one week ago No complications at this time (6) Hyperglycemia Current Visit: Yes Status: Acute Assessment and Plan: most likely steroid induced A1c 5.6 finger sticks and sliding scale for glucose control (7) DVT prophylaxis Current Visit: Yes Status: Acute Assessment and Plan: Subcutaneous heparin - Time Spent with Patient Total time spent is greater than 50% in coordination of care (as documented) at patient's floor/unit and/or counseling patient: Internal Medicine: Result - Labs CBC & Chem 7: 08/28/18 00:48 08/28/18 00:48 Labs: Short CBC 08/28/18 Range/Units 00:48 WBC 17.6 H (4.3-11.1) K/mcL Hgb 12.5 (11.5-15.4) g/dL Hct 36.7 (35.3-44.9) % Plt Count 308 (140-400) K/mcL BMP 08/28/18 00:48 Sodium 139 Potassium 3.3 L Chloride 102 Carbon Dioxide 25 BUN 15 Creatinine 0.72 Glucose 213 H Calcium 9.0 Consult Discharge Plan - Plan Referrals: Saul Dixon MD [Primary Care Provider] - (2) Sepsis Qualifiers: Sepsis type: sepsis due to unspecified organism Qualified Code(s): A41.9 - Sepsis, unspecified organism (3) Anaphylaxis Qualifiers: Encounter type: initial encounter Qualified Code(s): T78.2XXA - Anaphylactic shock, unspecified, initial encounter (4) Hypertension Qualifiers: Hypertension type: essential hypertension Qualified Code(s): I10 - Essential (primary) hypertension
--- NOTE | 2018-08-28 12:55 | Discharge Summary ---
- NOTES TO OUTPATIENT PROVIDER Notes to Outpatient Provider: follow up BP with PCP. please do not prescribe MILAGROS or ARBs as she had angioedema. follow up results of skin biopsy Orders not resulted at time of discharge: Pending orders 08/25/18 22:56 Culture,Blood [BC] Routine 08/26/18 10:[address] Spotted Ab,IgG & IgM Stat 08/27/18 05:04 SAEID IgG JUDY rflx IFA AM 0400 Procalcitonin AM 0400 Date of Encounter: 08/28/18 Time of Encounter: 13:06 - Discharge Diagnosis (1) Rash and nonspecific skin eruption Priority: Primary Status: Acute (2) Sepsis Priority: Secondary Status: Acute Qualifiers: Sepsis type: sepsis due to unspecified organism Qualified Code(s): A41.9 - Sepsis, unspecified organism (3) Anaphylaxis Priority: Secondary Status: Resolved Qualifiers: Encounter type: initial encounter Qualified Code(s): T78.2XXA - Anaphylactic shock, unspecified, initial encounter (4) Hypertension Priority: Secondary Status: Acute Qualifiers: Hypertension type: essential hypertension Qualified Code(s): I10 - Essential (primary) hypertension (5) Status post cholecystectomy Priority: Secondary Status: Acute (6) Hyperglycemia Priority: Secondary Status: Acute (7) DVT prophylaxis Priority: Secondary Status: Acute Hospital course: " Ms. Lopez is a 67 year old female with history of COPD, fibromyalgia, arthritis and recent complex surgery on Friday of last week who presented to [facility] ED with 2 day history of sore throat and rash. She states that she initially woke from sleep yesterday morning with a feeling in her throat as if there were something stuck there. She describes it as sore, but not scratchy. In addition to this, she says that she had developed a rash on her upper body, and also had a fever of 101. She felt that the symptoms overall give her general feeling of malaise, and that she overall just was not feeling very well. In addition that she felt that she had hard time swallowing and additionally felt that maybe it was a bit challenging to breathe because she was having some swelling in her throat and also in her lips. She went to the ER in the early afternoon on Friday at which time she was apparently given a dose of Benadryl and told to take it easy for the rest of the day, however she says that she was not feeling any better at that time. She said that the symptoms continued to worsen throughout the day, and when she woke up this morning she felt substantially worse. Throughout the day today, she said her rash continued to get worse, and that it began to itch severely bad as well as had a burning sensation. She said that her throat felt as though it was closing, and he cut significantly more painful throughout the day to swallow. Ultimately, she said that she began to feel extremely sick throughout the day and did not feel that she was getting better. She did not attempt to take anything for this at home, and nothing seemed to make it any better or worse. She presented to the emergency department again due to the painful swallowing as well as difficulty breathing at which time there was significant concern for allergic reaction and anaphylaxis. Upon questioning, the patient says that she has had no changes to her diet, nor has she had any changes in her medications. She says that she has not had any differences that she can think of in exposure at all. Her knowledge she has no food or drug allergies at all. Upon further questioning, her family does mention that [place], and the she recently has had exposure to multiple tick bites. They wondered if a tick bite could cause any of these symptoms." patient presented [facility] with above presentation. In the emergency room, the patient received the typical treatment for anaphylaxis Including Solu-Medrol, Benadryl, Pepcid, and epinephrine. Initially she said that she felt better, however her blood pressure did drop shortly after and she received another dose of epinephrine which did reduce it again. Since that time she has had no trouble with her blood pressure, and she does feel that the swelling has gone down some, however she does not feel that her symptoms have really resolved although not significantly and in fact thinks that her rash has potentially worsened. Pertinent initial labs did demonstrate WBC 15.7, bicarbonate 22, lactic acid 3.0. Following her second dose of epinephrine the patient became significantly more stable and was transferred to [facility] ICU for further monitoring. she was monitored in the ICU for 24 hrs with resolution of her face swelling. respiratory status was stable so she was transferred to medical floor for further management. ID was consulted and it was recommended to watch her with out inititian of ABx as labs below were negative for acute infection. dermatology was consulted on 08/27 and she is S/p punch biopsy on 08/28. dermatology recommendations followed. she is to follow up as OP with dermatology office with in 1 week. PIR is to provide patient with appointment. EPI pen was prescribed for the patient in an event that she does develope similar symptoms lisinopril was discontinued from home medications. she understands that she will need to visit the closest ED if she develops similar symptoms she understands Discharge discussed with: patient, nurse, data warehouse consultant - Time Spent with Patient Total time spent providing and/or coordinating discharge services: Greater than 30 minutes (35) - Discharge Medications Prescriptions: Cetirizine HCl [Zyrtec] 5 mg PO HS #15 udc EPINEPHrine [Epipen] 0.3 mg IM ONCE PRN #1 kit PRN Reason: Anaphylaxis Fexofenadine/Pseudoephedrine [Samina-D 12 Hour Tablet] 1 each PO DAILY #15 tab.er.12h PredniSONE [Deltasone] 40 mg PO DAILY #7 tablet Triamcinolone Acet 0.1% CRM [Kenalog] 1 appl TP BID #1 tube Home Medications: Budesonide/Formoterol 160/4.5 [Symbicort 160/4.5] 2 puff IH BIDR 04/25/16 [ History] DULoxetine [Cymbalta] 30 mg PO TID 04/25/16 [History] Albuterol Sulfate [Proair Hfa] 07/16/16 [History] Ascorbic Acid [Vitamin C] 500 mg PO 08/25/18 [History] Docusate [Colace] 100 mg PO BID 08/25/18 [History] Ferrous Sulfate [Iron] 325 mg PO BID 08/25/18 [History] Turmeric Root Extract [Turmeric] 500 mg PO 08/25/18 [History] Amlodipine Besylate 10 mg PO DAILY 08/26/18 [History] Metoprolol Succinate 200 mg PO DAILY 08/26/18 [History] Cetirizine HCl [Zyrtec] 5 mg PO HS #15 udc 08/28/18 [Rx] EPINEPHrine [Epipen] 0.3 mg IM ONCE PRN #1 kit 08/28/18 [Rx] Fexofenadine/Pseudoephedrine [Samina-D 12 Hour Tablet] 1 each PO DAILY #15 tab.er.12h 08/28/18 [Rx] PredniSONE [Deltasone] 40 mg PO DAILY #7 tablet 08/28/18 [Rx] Triamcinolone Acet 0.1% CRM [Kenalog] 1 appl TP BID #1 tube 08/28/18 [Rx] Allergies/Adverse Reactions: 3 Allergy/AdvReac Type Severity Reaction Status Date / Time codeine AdvReac Vomiting Verified 08/25/18 14:05 morphine AdvReac Vomiting Verified 08/25/18 14:05 Date of admission: 08/25/18 20:00 Primary care physician: Saul Dixon MD Consults: 08/26/18 08:49 Consult to Infectious Diseases [CONS] Routine Consulting Provider: Infectious Disease Ann-Marie Reason for Consult: rash from trunck now involving extremities including palms ( syphillis sent), ? rickettsia had tick bite Call Completed: No 08/27/18 17:55 Consult to Dermatology [CONS] Routine Consulting Provider: Dermatology Ann-Marie Reason for Consult: ?cut. vasculitis, need biopsy Call Completed: No - Constitutional Vitals: Temp Pulse Resp BP Pulse Ox 98.0 F 78 16 164/85 95 08/28/18 10:42 08/28/18 10:42 08/28/18 10:42 08/28/18 10:42 08/28/18 10:42 Exam: General: Patient is alert, oriented, no acute distress, speaks in full sentences Head: atraumatic, normocephalic, Eye: normal appearance, PERRL, no scleral icterus, no conjunctival injection ENT: mucous membranes moist, normal external ear exam, has erythema and dryness at the angle of the mouth bilaterally, no visible oral ulcers, no koplik spot Neck: normal inspection, trachea midline, full ROM, no carotid bruits Chest: normal inspection, symmetric chest rise Respiratory: Good respiratory effort. Bilateral breath sounds are clear without wheezing, crackles, or rhonchi. Cardiovascular: Regular rate and rhythm. s1 and s2 No clicks, rubs, gallops, or murmors. Abdomen: Bowel sounds present normoactive x-4 quadrants. Abdomen is soft, nondistended. no Epigastric tenderness. No guarding or rebound. No organomegaly noted, obese musculoskeletal: Spontaneously moving all extremities. no edema, no calf tenderness Skin: warm, dry, intact. eruthematoues macular rash involving stomach, trunk, palms, upper and lower extremities- improved Neuro: Alert and oriented x4. Sensation light touch intact. Cranial nerves 2- 12 is intact. Not aphasic, Psych: Patient's affect is normal - Patient Status Disposition: Home, Self-Care Condition: Fair Functional capacity at discharge: independent ambulation Overall status at discharge: patient is progressing back to baseline - Discharge Instructions Follow Up With: Saul Dixon MD [Primary Care Provider] - - Diet and Activity Activity: increase activity as tolerated Diet: advance to your usual diet
[2018-08-29] MEDS ORDERED: Furosemide 20 MG TABLET PO SCH (09:00)
[2018-08-31 08:41] LABS: ANA IgG by ELISA NONE DETECTED (None Detected)
--- NOTE | 2018-09-01 12:54 | Dermatology Consult Note ---
Date of Encounter: 09/02/18 Time of Encounter: 12:15 History of Present Illness Reason for Consult: rash History of Present Illness: Ms. Lopez is a 67 year old female with history of COPD, fibromyalgia, arthritis and recent complex surgery recently who came in with sore throat, rash. She had trouble swallowing and felt sick. She was treated for possible anaphylaxis with solumedrol, benadryl, pepcid and epinephirine. She was admitted and found to have continuation of the rash. She descibes them as red welts and said they are itchy. No change in recent medication. Rash is all over and seems to have improved in last 24 hrs. Review of Systems General/Constitutional: Patient denies fevers, chills, nor recent unintended weight loss, night sweats, no change in appetite or malaise. Hematologic: Patient denies new or enlarging lumps or bumps. Skin: Patient denies new or changing moles, or rash other than what is mentioned above. Past Med Surg Social Fam HX - Past Medical History Medical history: COPD Additional medical history: fibromyalgia. arthritis. gallbladder on friday Psychiatric history: no psych history - Past Surgical History Surgical History: cholecystectomy, sinus surgery - Social History Smoking Status: Former smoker Smokeless Tobacco Status: No Alcohol use: none Drug use: none Medications and Allergies Budesonide/Formoterol 160/4.5 [Symbicort 160/4.5] 2 puff IH BIDR 04/25/16 [ History] DULoxetine [Cymbalta] 30 mg PO TID 04/25/16 [History] Albuterol Sulfate [Proair Hfa] 07/16/16 [History] Ascorbic Acid [Vitamin C] 500 mg PO 08/25/18 [History] Docusate [Colace] 100 mg PO BID 08/25/18 [History] Ferrous Sulfate [Iron] 325 mg PO BID 08/25/18 [History] Turmeric Root Extract [Turmeric] 500 mg PO 08/25/18 [History] Amlodipine Besylate 10 mg PO DAILY 08/26/18 [History] Metoprolol Succinate 200 mg PO DAILY 08/26/18 [History] Cetirizine HCl [Zyrtec] 5 mg PO HS #15 udc 08/28/18 [Rx] EPINEPHrine [Epipen] 0.3 mg IM ONCE PRN #1 kit 08/28/18 [Rx] Fexofenadine/Pseudoephedrine [Samina-D 12 Hour Tablet] 1 each PO DAILY #15 tab.er.12h 08/28/18 [Rx] PredniSONE [Deltasone] 40 mg PO DAILY #7 tablet 08/28/18 [Rx] Triamcinolone Acet 0.1% CRM [Kenalog] 1 appl TP BID #1 tube 08/28/18 [Rx] 3 Allergy/AdvReac Type Severity Reaction Status Date / Time codeine AdvReac Vomiting Verified 08/25/18 14:05 morphine AdvReac Vomiting Verified 08/25/18 14:05 Examination Vital Signs: Temp Pulse Resp BP Pulse Ox 98.0 F 78 16 164/85 95 08/28/18 10:42 08/28/18 10:42 08/28/18 10:42 08/28/18 10:42 08/28/18 10:42 General Examination: The patient appears alert, oriented X3, in no acute distress, healthy-appearing , normal mood. A detailed skin examination of sites including: scalp, head, neck , face, conjunctive, lids, lips, back, chest/breast/axilla, abdomen, bilateral upper extremities including hands/digits/fingernails normal except erythematous somewhat annular raised non scaly edematous patches and plaques mainly on trunk and extremities. lower mucosal lip w/ faint denuded ulceration - Assessment and Plan (1) Rash and nonspecific skin eruption Status: Acute urticaria vs urticarial vasculitis vs EM in ddx. punch biopsy done today. rec prednisone 40 x 1 week until get path back. rec allerga q am and zyrtec q hs. Procedure: Dermatology Date of procedure: 08/28/18 Procedure: Verification/Time out procedure: Correct patient and procedure verified? Yes. Correct patient and procedure verified? Yes. Correct site verified per policy? Yes. Correct site verified per policy? Yes. Time out performed by policy? Yes. Time out performed by policy? Yes. Dermatology: PUNCH BIOPSY: Punch biopsy(s) of the lesion noted above rash- location back to establish and confirm diagnosis. The procedure, risks, benefits, alternatives and expected outcomes were discussed with the patient and consent was obtained. Time out called. Patient identified, procedure verified, site(s) identified and verified. Patient and staff present in agreement. Area(s) prepped with alcohol and anesthetized with 1.0% lidocaine with epinephrine at 1:100,000 concentration. 2 ml of lidocaine with epinephrine were injected Biopsy(s) of lesion performed. Lesion(s) closed with 2, 4'0 interrupted sutures and bandaging applied. Specimen(s) sent to pathology. Patient instructed in routine post-op care. Patient instructed in routine post-op care and wound care handout given. We recommended suture removal in 10-14 days. Consult Discharge Plan - Plan Referrals: Saul Dixon MD [Primary Care Provider] - Prescriptions: Cetirizine HCl [Zyrtec] 5 mg PO HS #15 udc EPINEPHrine [Epipen] 0.3 mg IM ONCE PRN #1 kit PRN Reason: Anaphylaxis Fexofenadine/Pseudoephedrine [Samina-D 12 Hour Tablet] 1 each PO DAILY #15 tab.er.12h PredniSONE [Deltasone] 40 mg PO DAILY #7 tablet Triamcinolone Acet 0.1% CRM [Kenalog] 1 appl TP BID #1 tube
== END 2018-08-28 14:46 | disposition home or self-care (01) ==
LOC: INTOOBSV 20:00 → ICNU 20:00 → 3ANU 08-26 18:15
PROVIDERS: ADMIT Internal Medicine; ATTEND Internal Medicine